=== PATIENT | male | born 1940 | race Caucasian/White ===

== ENCOUNTER 2022-01-28 11:41 | Emergency (ER) | payer MEDICARE, OTHER ==
[2022-01-28] MEDS ORDERED: Sodium Chloride 0.9% 10 ML Syringe FLUSH PRN (12:20)
[2022-01-28] MEDS ORDERED: Atenolol 25 MG Tab PO ONE (12:50)
[2022-01-28 12:51] LABS: ANION GAP 13.3 meq/L (7-15)
[2022-01-28 13:18] VITALS: BP 164/70; PULSE 59
[2022-01-28] MEDS ORDERED: Iopamidol 755 Mg/ML 100 ML Bottle IVPUSH ONE (13:30)
[2022-01-28] MEDS ORDERED: Sodium Chloride 0.9% 500 ML IV SCH (13:30)
[2022-01-28] MEDS ORDERED: Acetaminophen 325 MG Tab PO ONE (13:58)
== END 2022-01-28 15:30 | disposition home or self-care (01) ==
LOC: LL.ED 11:41
DX: R55 Syncope and collapse (principal); I11.0 Hypertensive heart disease with heart failure; I50.9 Heart failure, unspecified; I25.10 Atherosclerotic heart disease of native coronary artery without angina pectoris; E78.00 Pure hypercholesterolemia, unspecified; I25.2 Old myocardial infarction; Z86.73 Personal history of transient ischemic attack (TIA), and cerebral infarction without residual deficits; Z88.2 Allergy status to sulfonamides; Z88.4 Allergy status to anesthetic agent; Z88.8 Allergy status to other drugs, medicaments and biological substances; Z79.899 Other long term (current) drug therapy; Z95.1 Presence of aortocoronary bypass graft; Z79.82 Long term (current) use of aspirin; Z87.891 Personal history of nicotine dependence
CPT/HCPCS: 36415; 71275; 80053; 81001; 83605; 83735; 83880; 84484; 85025; 85379; 93005; 93010; 99284; 99285-25; A9270-GY; J7040; Q9967